=== PATIENT | male | born 1990 | race Caucasian/White ===

== ENCOUNTER 2019-04-26 22:26 | Emergency (ER) | payer SELFPAY ==
[2019-04-26] MEDS ORDERED: ALBUTEROL 2.5 MG/3 ML NEB SOL ONE (22:58)
[2019-04-26] MEDS ORDERED: IPRATROPIUM BROM 0.5MG/2.5ML ONE (22:58)
--- NOTE | 2019-04-26 23:33 | EDPHYS ---
Physician Documentation [facility] Name: Misbah Gross Age: 28 yrs Sex: Male : 1990 Arrival Date: 04/26/2019 Time: 22:33 Bed 26 Private MD: ED Physician Matias Covarrubias HPI: 04/26 22:56 This 28 yrs old Male presents to ER via Ambulatory with complaints of tw4 Shortness Of Breath. 22:56 The patient has shortness of breath at rest. Onset: The symptoms/episode began/occurred tw4 yesterday. Duration: The symptoms are continuous, and are steadily getting worse. The patient's shortness of breath has no apparent modifying factors. Associated signs and symptoms: The patient has no apparent associated signs or symptoms. Severity of symptoms: At their worst the symptoms were moderate in the emergency department the symptoms are unchanged. The patient has experienced similar episodes in the past, a few times, The patient has not recently seen a physician. Historical: - Allergies: 22:37 No Known Allergies; aj1 - Home Meds: 22:37 Albuterol Inhl [Active]; aj1 - PMHx: 22:37 Asthma; aj1 - Immunization history:: Flu vaccine is up to date. - Social history:: Smoking status: Patient uses tobacco products, smokes one pack cigarettes per day. - Ebola Screening: : Patient denies travel to an Ebola-affected area in the 21 days before illness onset. ROS: 22:56 Constitutional: Negative for fever, chills, and weight loss, Eyes: Negative for injury, tw4 pain, redness, and discharge, Cardiovascular: Negative for chest pain, palpitations, and edema, Abdomen/GI: Negative for abdominal pain, nausea, vomiting, diarrhea, and constipation, Back: Negative for injury and pain. 22:56 MS/Extremity: Negative for injury and deformity, Skin: Negative for injury, rash, and discoloration, Neuro: Negative for headache, weakness, numbness, tingling, and seizure. 22:56 Respiratory: Positive for cough, shortness of breath, on exertion. wheezing. Exam: 22:56 Constitutional: This is a well developed, well nourished patient who is awake, alert, tw4 and in no acute distress. Head/Face: Normocephalic, atraumatic. Chest/axilla: Normal chest wall appearance and motion. Nontender with no deformity. No lesions are appreciated. Cardiovascular: Regular rate and rhythm with a normal S1 and S2. No gallops, murmurs, or rubs. Normal PMI, no JVD. No pulse deficits. Abdomen/GI: Soft, non-tender, with normal bowel sounds. No distension or tympany. No guarding or rebound. No evidence of tenderness throughout. Back: No spinal tenderness. No costovertebral tenderness. Full range of motion. Vital Signs: 22:37 BP 126 / 82; Pulse 90; Resp 28; Temp 98.3; Pulse Ox 96% on R/A; Height 6 ft. 0 in. aj1 (182.88 cm) (R); 23:35 BP 137 / 66; Pulse 80; Resp 18; Pulse Ox 99% on R/A; rv MDM: 22:44 Patient medically screened. tw4 04/27 06:07 Differential diagnosis: asthma, Bronchitis CHF exacerbation, pneumonia, Psychogenic. tw4 Antibiotic administration: Not indicated. Antibiotic administration: Not indicated, the patient does not have an appreciated infiltrate, the patient's primary pathology is reactive airway disease. Data reviewed: vital signs, nurses notes. Data interpreted: Pulse oximetry: Interpretation: normal. Medication response: albuterol nebulizer treatment(s) relieved the patient's symptoms. The patient is no longer wheezing. Special discussion: I discussed with the patient/guardian in detail that at this point there is no indication for admission to the hospital. It is understood, however, that if the symptoms persist or worsen the patient needs to return immediately for re-evaluation. Administered Medications: 04/26 23:00 Drug: DuoNeb (3:1) (2.5 mg - 0.5 mg) 3 ml Route: Nebulizer; aj1 23:36 Follow up: Response: No adverse reaction; Marked relief of symptoms rv Disposition: 04/26/19 23:31 Discharged to Home. Impression: Asthma. - Condition is Stable. - Discharge Instructions: Asthma, Acute Bronchospasm. - Prescriptions for Medrol (Lloyd) 4 mg Oral Tablets, Dose Pack - take 1 tablet by ORAL route as directed - follow package instructions; 1 packet. Albuterol Sulfate 90 mcg/actuation - inhale 1-2 puff by INHALATION route every 4-6 hours; 1 Inhaler. - Medication Reconciliation Form, Thank You Letter, Antibiotic Education, Prescription Opioid Use form. - Follow up: Private Physician; When: Upon discharge from the Emergency Department; Reason: Recheck today's complaints, Continuance of care. - Problem is new. - Symptoms have improved. Signatures: Cheryl Jiménez RN RN aj1 Matias Covarrubias MD MD tw4 Blair Flores RN RN rv Corrections: (The following items were deleted from the chart) 23:36 23:31 04/26/2019 23:31 Discharged to Home. Impression: Asthma. Condition is Stable. rv Forms are Medication Reconciliation Form, Thank You Letter, Antibiotic Education, Prescription Opioid Use. Follow up: Private Physician; When: Upon discharge from the Emergency Department; Reason: Recheck today's complaints, Continuance of care. Problem is new. Symptoms have improved. tw4
--- NOTE | 2019-04-26 23:33 | ER ---
Nurse's Notes [facility] Name: Misbah Gross Age: 28 yrs Sex: Male : 1990 Arrival Date: 04/26/2019 Time: 22:33 Bed 26 Private MD: Diagnosis: Asthma Presentation: 04/26 22:36 Presenting complaint: Patient states: Shortness of breath that started yesterday. aj1 Patient productive cough. Denies fever. Transition of care: patient was not received from another setting of care. Onset of symptoms was April 25, 2019. Risk Assessment: Do you want to hurt yourself or someone else? Patient reports no desire to harm self or others. Initial Sepsis Screen: Does the patient meet any 2 criteria? HR > 90 bpm. No. Patient's initial sepsis screen is negative. Does the patient have a suspected source of infection? No. Patient's initial sepsis screen is negative. Care prior to arrival: None. 22:36 Method Of Arrival: Ambulatory aj1 22:36 Acuity: REBEKAH 3 aj1 Triage Assessment: 22:37 General: Appears in no apparent distress. comfortable, Behavior is calm, cooperative, aj1 appropriate for age. Pain: Complains of pain in forehead Pain currently is 7 out of 10 on a pain scale. Neuro: Level of Consciousness is awake, alert, obeys commands. Cardiovascular: Patient's skin is warm and dry. Respiratory: Reports shortness of breath at rest cough that is productive, Airway is patent Respiratory effort is even, unlabored, Respiratory pattern is regular, symmetrical, Onset: The symptoms/episode began/occurred yesterday, the patient has moderate shortness of breath. Historical: - Allergies: 22:37 No Known Allergies; aj1 - Home Meds: 22:37 Albuterol Inhl [Active]; aj1 - PMHx: 22:37 Asthma; aj1 - Immunization history:: Flu vaccine is up to date. - Social history:: Smoking status: Patient uses tobacco products, smokes one pack cigarettes per day. - Ebola Screening: : Patient denies travel to an Ebola-affected area in the 21 days before illness onset. Screenin:43 Abuse screen: Denies threats or abuse. Denies injuries from another. Nutritional aj1 screening: No deficits noted. Tuberculosis screening: No symptoms or risk factors identified. 23:09 Fall Risk None identified. rv Assessment: 22:43 General: Appears in no apparent distress. uncomfortable, Behavior is calm, cooperative, aj1 appropriate for age. Pain: Complains of pain in forehead Pain does not radiate. Quality of pain is described as aching, Pain began 1 day ago. Neuro: Level of Consciousness is awake, alert, obeys commands, Oriented to person, place, time, situation, Gait is steady, Speech is normal. Cardiovascular: Heart tones S1 S2 present Patient's skin is warm and dry. Rhythm is regular. Respiratory: Reports shortness of breath at rest cough that is non-productive, Airway is patent Respiratory effort is even, unlabored, Respiratory pattern is regular, symmetrical, Breath sounds with wheezes bilaterally. Onset: The symptoms/episode began/occurred yesterday, the patient has moderate shortness of breath. GI: No signs and/or symptoms were reported involving the gastrointestinal system. : No signs and/or symptoms were reported regarding the genitourinary system. EENT: No signs and/or symptoms were reported regarding the EENT system. Derm: No signs and/or symptoms reported regarding the dermatologic system. Skin is pink, warm \T\ dry. normal. Musculoskeletal: No signs and/or symptoms reported regarding the musculoskeletal system. Circulation, motion, and sensation intact. Vital Signs: 22:37 BP 126 / 82; Pulse 90; Resp 28; Temp 98.3; Pulse Ox 96% on R/A; Height 6 ft. 0 in. aj1 (182.88 cm) (R); 23:35 BP 137 / 66; Pulse 80; Resp 18; Pulse Ox 99% on R/A; rv ED Course: 22:33 Patient arrived in ED. cf2 22:37 Triage completed. aj1 22:37 Arm band placed on Patient placed in an exam room. aj1 22:43 Patient has correct armband on for positive identification. Bed in low position. Call aj1 light in reach. 22:43 No provider procedures requiring assistance completed. aj1 22:44 Matias Covarrubias MD is Attending Physician. tw4 23:08 Blair Flores RN is Primary Nurse. rv 23:35 Patient did not have IV access during this emergency room visit. rv Administered Medications: 23:00 Drug: DuoNeb (3:1) (2.5 mg - 0.5 mg) 3 ml Route: Nebulizer; aj1 23:36 Follow up: Response: No adverse reaction; Marked relief of symptoms rv Outcome: 23:31 Discharge ordered by . colleen 23:35 Discharged to home ambulatory. rv 23:35 Condition: improved 23:35 Discharge instructions given to patient, Instructed on discharge instructions, follow up and referral plans. medication usage, Demonstrated understanding of instructions, follow-up care, medications, Prescriptions given X 2. 23:36 Patient left the ED. rv Signatures: Cheryl Jiménez, RN RN aj1 Matias Covarrubias MD MD tw4 Blair Flores RN RN rv Gordon Ramirez 2
[2019-04-27 01:18] VITALS: TEMP 98.3
[2019-04-27 01:19] VITALS: BP 137/66; O2SAT 99
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
== END 2019-04-26 23:36 | disposition home or self-care (01) ==
LOC: ER 22:26
DX: J45.909 Unspecified asthma, uncomplicated (principal)
CPT/HCPCS: 94640; 99284